=== PATIENT | male | born 1985 ===

== ENCOUNTER 2025-03-25 11:09 | Emergency (ER) | payer SELFPAY ==
[~2025-03-25] VITALS: Ht 188 cm; Wt 98.0 kg
[2025-03-25 11:14] VITALS: O2SAT 100
[2025-03-25 11:24] VITALS: BP 147/86; PULSE 84; RESP 16; TEMP 36.7; O2SAT 100
== END 2025-03-25 13:06 | disposition home or self-care (01) ==
LOC: ER 11:09
DX: Z00.00 Encounter for general adult medical examination without abnormal findings (principal)
CPT/HCPCS: 99282